=== PATIENT | male | born 1945 | race Caucasian/White ===

== ENCOUNTER 2018-07-29 00:12 | Emergency (ER) | payer OTHER ==
[~2018-07-29] VITALS: Ht 167.6 cm; Wt 77.1 kg
[~2018-07-29 00:12] MED LIST: CARDIZEM LA240 MG PO; CATAPRES0.3 MG PO; COREG25 MG PO; COUMADIN5 MG PO; NAPROSYN500 MG PO; PLAVIX75 MG PO; PRAVASTATIN SOD10 MG PO; ZESTRIL40 MG PO
[2018-07-29 00:27] VITALS: Ht 167.6 cm; Wt 77.1 kg
[2018-07-29] MEDS ORDERED: COUMADIN7.5 MG PO (00:33)
[2018-07-29] MEDS ORDERED: OMEPRAZOLE20 M1 (00:35)
[2018-07-29] MEDS ORDERED: PRAVACHOL20 MG PO (00:35)
[2018-07-29] MEDS ORDERED: ADALAT CC90 MG PO (00:36)
[2018-07-29] MEDS ORDERED: LISINOPRIL40 MG PO (00:37)
[2018-07-29 02:00] LABS: BASOPHILS 0.5 % (0-2); EOSINOPHILS 1.6 % (0-7); HEMATOCRIT 36.5 % (42.0-54.0); HEMOGLOBIN 12.2 g/dL (13.5-17.5); IMMATURE GRANULOCYTES 0.3 % (0-5); MCH 28.7 pg (26.0-34.0); MCHC 33.4 g/dL (31.0-37.0); MCV 85.9 fL (80.0-100.0); MEAN PLATELET VOLUME 11.3 fL (7.4-10.4); MONOCYTES 9.8 % (2-11); NEUTROPHILS 64.8 % (40-80); PLATELET COUNT 169 10x3/uL (130-400); RBC 4.25 10x6/uL (4.20-6.10); RDW 14.9 % (11.5-14.5); WBC 6.3 10x3/uL (4.8-10.8)
[2018-07-29 02:04] LABS: APTT 37.7 SECONDS (22.8-39.4); INR 2.9 (0.85-1.17); PROTIME 29.6 SECONDS (11.6-15.0)
[2018-07-29 02:05] LABS: D-DIMER-QUANTITATIVE 0.42 ug/mLFEU (0.20-0.54)
[2018-07-29 02:08] LABS: ALBUMIN 3.1 g/dL (3.4-5.0); ALKALINE PHOSPHATASE 54 U/L (46-116); ALT (SGPT) 14 U/L (10-68); BILIRUBIN - TOTAL 0.27 mg/dL (0.2-1.3); CALC OSMOLALITY 270 mosm/kg (275-300); CALCIUM 8.2 mg/dL (8.5-10.1); CARBON DIOXIDE 26.4 mmol/L (21.0-32.0); CHLORIDE - SERUM 104 mmol/L (98-107); CREATININE - SERUM 0.9 mg/dL (0.6-1.3); GLUCOSE 103 mg/dL (74-106); POTASSIUM - SERUM 3.2 mmol/L (3.5-5.1); PROTEIN - SERUM 6.4 g/dL (6.4-8.2); SODIUM 136 mmol/L (136-145); UREA NITROGEN 10 mg/dL (7-18); eGFR NON AFRICAN AMERICAN 88 mL/min (90-120)
[2018-07-29 02:23] LABS: CKMB 1.7 U/L (0.0-3.6); CREATINE KINASE 101 UL (21-232); MAGNESIUM - SERUM 1.8 mg/dL (1.8-2.4)
[2018-07-29 02:59] LABS: TROPONIN-I 0.093 ng/mL (0.000-0.060)
[2018-07-29 03:35] VITALS: BP 132/991
== END 2018-07-29 03:46 | disposition home or self-care (01) ==
LOC: D.ER 00:12
PROVIDERS: Family Medicine
DX: I48.91 Unspecified atrial fibrillation (principal); R74.8 Abnormal levels of other serum enzymes; E87.6 Hypokalemia; Z79.01 Long term (current) use of anticoagulants; R53.1 Weakness; R42 Dizziness and giddiness

== ENCOUNTER 2018-08-01 00:36 | Emergency (ER) | payer OTHER ==
[~2018-08-01] VITALS: Ht 167.6 cm; Wt 88.9 kg
[~2018-08-01 00:36] MED LIST changes: +ADALAT CC90 MG PO; +COUMADIN7.5 MG PO; +LISINOPRIL40 MG PO; +OMEPRAZOLE20 M1; +PRAVACHOL20 MG PO
[2018-08-01 00:42] VITALS: Ht 167.6 cm; Wt 88.9 kg
[2018-08-01] MEDS ORDERED: LANOXIN125 MCG PO (00:46)
[2018-08-01 01:21] LABS: CKMB 1.9 U/L (0.0-3.6); CREATINE KINASE 136 UL (21-232); DIGOXIN 0.56 ng/mL (0.90-2.00); POTASSIUM - SERUM 3.4 mmol/L (3.5-5.1); TROPONIN-I < 0.017 ng/mL (0.000-0.060)
[2018-08-01 02:24] VITALS: BP 158/88
== END 2018-08-01 02:24 | disposition home or self-care (01) ==
LOC: D.ER 00:36
PROVIDERS: Emergency Medicine
DX: I48.91 Unspecified atrial fibrillation (principal); D64.9 Anemia, unspecified

== ENCOUNTER 2019-08-30 15:23 | Emergency (ER) | payer OTHER ==
[~2019-08-30] VITALS: Ht 167.6 cm; Wt 98.2 kg
[~2019-08-30 15:23] MED LIST changes: +LANOXIN125 MCG PO
[2019-08-30 15:45] VITALS: Ht 167.6 cm; Wt 98.2 kg
[2019-08-30] MEDS ORDERED: METOPROLOL TART25 MG (15:50)
[2019-08-30 16:43] LABS: HEMATOCRIT 46.3 % (42.0-54.0); HEMOGLOBIN 15.1 g/dL (13.5-17.5); LYMPHOCYTES 29.8 % (15-50); MCH 28.4 pg (26.0-34.0); MCHC 32.6 g/dL (31.0-37.0); MEAN PLATELET VOLUME 11.4 fL (7.4-10.4); NEUTROPHILS 59.8 % (40-80); PLATELET COUNT 187 10x3/uL (130-400); RBC 5.32 10x6/uL (4.20-6.10); RDW 17.2 % (11.5-14.5); WBC 6.4 10x3/uL (4.8-10.8)
[2019-08-30 16:54] LABS: APTT 34.7 SECONDS (22.8-39.4); INR 2.43 (0.85-1.17)
[2019-08-30 16:55] LABS: CALC OSMOLALITY 276 mosm/kg (275-300); CALCIUM 9.1 mg/dL (8.5-10.1); CARBON DIOXIDE 27.5 mmol/L (21.0-32.0); CHLORIDE - SERUM 103 mmol/L (98-107); CREATININE - SERUM 0.7 mg/dL (0.6-1.3); GLUCOSE 88 mg/dL (74-106); POTASSIUM - SERUM 3.2 mmol/L (3.5-5.1); SODIUM 140 mmol/L (136-145); UREA NITROGEN 10 mg/dL (7-18); eGFR NON AFRICAN AMERICAN > 90 mL/min (90-120)
[2019-08-30 17:13] LABS: ALBUMIN 3.5 g/dL (3.4-5.0); ALKALINE PHOSPHATASE 66 U/L (30-120); ALT (SGPT) 17 U/L (10-68); BILIRUBIN - TOTAL 0.42 mg/dL (0.2-1.3); CKMB 1.7 U/L (0.0-3.6); CREATINE KINASE 100 UL (21-232); MAGNESIUM - SERUM 2.1 mg/dL (1.8-2.4); PROTEIN - SERUM 7.3 g/dL (6.4-8.2)
[2019-08-30 17:22] LABS: TROPONIN-I < 0.017 ng/mL (0.000-0.060)
[2019-08-30 18:28] VITALS: BP 124/73
== END 2019-08-30 18:29 | disposition home or self-care (01) ==
LOC: D.ER 15:23
PROVIDERS: Family Medicine
DX: E87.6 Hypokalemia (principal); I48.91 Unspecified atrial fibrillation; E86.0 Dehydration; R42 Dizziness and giddiness; I10 Essential (primary) hypertension; Z72.0 Tobacco use; K21.9 Gastro-esophageal reflux disease without esophagitis; R07.9 Chest pain, unspecified

== ENCOUNTER 2020-08-30 02:26 | Inpatient (IN) | payer OTHER ==
[~2020-08-30] VITALS: Ht 167.6 cm; Wt 72.8 kg
[2020-08-30] VITALS (13 sets, daily range): BP systolic 98–124; BP diastolic 53–89; Ht 167.6 cm; Wt 72.8 kg
--- NOTE | ~2020-08-30 | HEMODYNAMI ---
PATIENT:SHANNAN WADE MEDICAL RECORD: [id number] : 41 [address] [id number] ADMISSION DATE: 08/30/20 Generatedon:19:43 Patient name: SHANNAN WADE Patient #: [id number] : 1945 Date of study: 09/01/2020 Page: Of Hemodynamic Procedure Report Patient Data Patient Demographics Procedure consent was obtained First Name: SHANNAN Gender: Male Last Name: MAURO : 1945 Patient #: [id number] Age: 75 year(s) Race: SSN: [id number] Additional ID: [id number] Contact details Address: [address] [place] [address] State: [place] City: [place] Zip code: [address] Past Medical History Allergies: No known allergies Admission Admission Data Admission Date: 08/30/2020 Admission Time: 4:59 Room #: [facility] Lab Results Lab Result Date: 09/01/2020 Lab Result Time: 0:00 Biochemistry Name Units Result Min Max BUN mg/dl 15 --(--*-)-- 7 18 Creatinine mg/dl 1.2 --(---*)-- 0.6 1.3 CBC Name Units Result Min Max Hemoglobin g/dl 15.3 --(-*--)-- 13.5 17.5 Procedure Procedure Types Cath Procedure Diagnostic Procedure LHC [facility] w/Coronaries FFR/IVUS FFR Initial Sedation Charges Moderate Sedation 25-39 minutes PCI Procedure Coronary Stent Coronary Stent Initial Hemochron ACT Test Procedure Description Procedure Date Procedure Date: 09/01/2020 Procedure Start Time: 9:08 Procedure End Time: 9:40 Procedure Staff Name Function Vitaliy Beverly MD Performing Physician She Garland RT Monitor Maria Del Carmen Porter RT Scrub Hardeep Anderson RN Nurse Efrem Stein RN Nurse Procedure Data Cath Procedure Fluoroscopy Diagnostic fluoroscopy Total fluoroscopy Time: 6.3 time: 6.3 min min Diagnostic fluoroscopy Total fluoroscopy dose: 708 dose: 708 mGy mGy Contrast Material Contrast Material Type Amount (ml) Isovue 300 123 Entry Location Entry Primary Successful Side Size Upsize Upsize Entry Closure Succes sful Closure Location (Fr) 1 (Fr) 2 (Fr) Remarks Device Remarks Femoral Right 6 Fr 6 Fr 6 Fr Exoseal artery Short Long Short Estimated blood loss: 5 ml Diagnostic catheters Device Type Used For End Catheter Placement MULTIPACK JL 4.0 5Fr Left Coronary catheter Angiography DIAGNOSTIC JL 5 5Fr Left Coronary catheter ([id number]) Angiography DIAGNOSTIC JL 6 5Fr Left Coronary catheter ([id number]) Angiography MULTIPACK 3DRC 5Fr Right Coronary catheter Angiography MULTIPACK Pigtail 5 Fr LV Angiography catheter Procedure Complications No complications Procedure Medications Medication Administration Route Dosage 0.9% NaCl I.V. 100 ml/hr Oxygen etCO2 Nasal cannula 3 l/min Heparin Flush Bag added to field 2 bags (1000units/500ml NS) Lidocaine 2% added to field 20 Fentanyl I.V. 50 mcg Versed I.V. 1 mg Fentanyl I.V. 25 mcg Versed I.V. 0.5 mg Fentanyl I.V. 25 mcg Versed I.V. 0.5 mg Heparin Bolus I.V. 5000 units Integrilin (Bolus I.V. 6.8 ml 2mg/ml) Plavix P.O. 600 mg Hemodynamics Rest HGB: 15.3 (g/dl) Heart Rate: 75 (bpm) Pressure Samples Time Site Value (mmHg) Purpose Heart Use Rate(bpm) 9:22 LV 108/21,23 Snapshot 68 Gradients Valve Time Site Site Mean SEP/DFP Peak To Heart Use 1 2 (mmHg) (sec/min) Peak Rate (mmHg) (bpm) Aortic 9:23 LV AO 56 Snapshots Pre Cath Intra NCS Post Cath Vital Signs Time Heart Resp SPO2 etCO2 NIBP (mmHg) Rhythm Pain Sedation Rate (ipm) (%) (mmHg) Status Level (bpm) 8:49:18 82 20 100 0 133/95(127) NSR 0 (11) 10(A) , No pain 8:53:26 80 15 99 0 140/111(121) NSR 0 (11) 10(A) , No pain 8:57:36 85 15 98 0 133/95(105) NSR 0 (11) 10(A) , No pain 9:01:44 78 13 98 0 125/89(107) NSR 0 (11) 10(A) , No pain 9:05:52 62 12 96 0 122/84(111) NSR 0 (11) 10(A) , No pain 9:10:00 72 13 98 0 118/83(101) NSR 0 (11) 9(A) , No pain 9:14:03 51 12 98 0 122/87(105) NSR 0 (11) 9(A) , No pain 9:18:05 67 11 99 0 114/86(98) NSR 0 (11) 9(A) , No pain 9:22:07 69 10 98 0 116/81(95) NSR 0 (11) 9(A) , No pain 9:26:15 56 11 95 0 105/70(83) NSR 0 (11) 9(A) , No pain 9:30:16 53 11 96 0 121/77(94) NSR 0 (11) 9(A) , No pain 9:34:20 58 10 98 0 108/77(90) NSR 0 (11) 9(A) , No pain 9:38:24 65 11 98 0 103/80(97) NSR 0 (11) 10(A) , No pain Medications Time Medication Route Dose Verified Delivered Reason Notes Effectiveness by by 8:48:27 0.9% NaCl I.V. 100 Vitaliy Topete used for ml/hr St Naif Stein RN procedure 8:48:37 Oxygen etCO2 3 Vitaliy Efrem for sedation Nasal l/min St Naif Stein RN cannula 8:48:46 Heparin Flush added 2 Vitaliy Vitaliy used for Bag to bags [facility] procedure (1000units/500ml field MD MCQUEEN NS) 8:48:55 Lidocaine 2% added 20ml Vitaliy Meyersory for local to vial [facility] anesthetic field MD MCQUEEN 9:08:22 Fentanyl I.V. 50 Vitaliy Efrem for sedation mcg St Naif Stein RN, MD 9:08:30 Versed I.V. 1 mg Vitaliy Guthriey for sedation St Naif Stein RN, MD 9:16:34 Fentanyl I.V. 25 Vitaliy Guthriey for sedation mcg St Naif Stein RN, MD 9:16:37 Versed I.V. 0.5 Vitaliy Efrem for sedation mg St Naif Stein RN, MD 9:22:17 Fentanyl I.V. 25 Vitaliy Topete for sedation mcg St Naif Stein RN, MD 9:22:22 Versed I.V. 0.5 Vitaliy Topete for sedation mg St Naif Stein RN, MD 9:25:59 Heparin Bolus I.V. 5000 Vitaliy Topete for units St Naif Stein RN anticoagulation MD 9:27:58 Integrilin I.V. 6.8 Vitaliy Topete for 3.2 mL (Bolus 2mg/ml) ml St Naif Stein RN antiplatelet wasted MD therapy 9:40:47 Plavix P.O. 600 Vitaliy Topete for mg St Naif Stein RN antiplatelet MD therapy Procedure Log Time Note 8:28:45 Diagnostic Cath Status : Urgent 8:29:20 Informed consent obtained and on chart 8:32:22 Procedure Status Urgent Heart Cath (IP). 8:32:27 Hardeep Anderson RN sent for patient. Start room use. 8:32:28 Time tracking: Regular hours (M-F 7:00 - 5:00) 8:32:34 Plan of Care:Hemodynamics will remain stable., Cardiac rhythm will remain stable., Comfort level will be maintained., Respiratory function will remain adequate., Patient/ family verbilizes understanding of procedure., Procedure tolerated without complication., Recovers from procedure without complications.. 8:41:30 Lab Result : Hemoglobin 15.3 g/dl 8:41:30 Lab Result : Creatinine 1.2 mg/dl 8:41:30 Lab Result : BUN 15 mg/dl 8:41:39 Patient received from Med II to CCL 1 Alert and oriented. Tansferred to table in Supine position. 8:41:40 Warm blankets applied, and holly hugger turned on for patient comfort. 8:41:40 Correct patient and procedure confirmed by team. 8:41:41 ECG and BP/O2 sat monitors applied to patient. 8:48:13 Vital chart was started 8:48:27 0.9% NaCl 100 ml/hr I.V. was administered by Efrem Stein RN; used for procedure; Verbal order read back and verified. 8:48:37 Oxygen 3 l/min etCO2 Nasal cannula was administered by Efrme Stein RN; for sedation; Verbal order read back and verified. 8:48:46 Heparin Flush Bag (1000units/500ml NS) 2 bags added to field was administered by Vitaliy Beverly MD; used for procedure; Verbal order read back and verified. 8:48:55 Lidocaine 2% 20ml vial added to field was administered by Vitaliy Beverly MD; for local anesthetic; Verbal order read back and verified. 8:53:24 Baseline sample Acquired. 8:54:02 Full Disclosure recording started 8:54:05 Baseline sample Acquired. 8:54:16 H&P Date Dictated: 09/01/2020 ER History on chart., New H&P dictated by physician.. 8:54:17 Pre-procedure instructions explained to patient. 8:54:18 Pre-op teaching completed and patient verbalized understanding. 8:54:20 Family in patients room. 8:54:21 Patient NPO since Midnight. 8:54:26 Is the patient allergic to Iodine/contrast media? No. 8:54:27 Was the patient premedicated? Yes 8:54:28 Is patient on blood thinner?Yes 8:54:56 patient states last dose of Coumadin on 08/30/20 8:54:59 Patient diabetic? No. 8:55:01 Previous problem with sedation/anesthesia? No ? 8:55:03 Snore? Yes 8:55:04 Sleep apnea? No 8:55:11 Deviated septum? No 8:55:12 Opens mouth fully? Yes 8:55:14 Sticks out tongue? Yes 8:55:24 Airway obstruction? No ? 8:55:27 Dentures? No ? 8:55:30 Pre procedure: right dorsailis pedis pulse 2+ Normal; easily identifiable; not easily obliterated 8:55:32 Pre procedure: left dorsailis pedis pulse 2+ Normal; easily identifiable; not easily obliterated 8:55:35 Patient pain scale 0/10 ?. 8:55:42 IV patent on arrival in right forearm with 0.9% NaCl at [facility]. 8:55:48 Lab results completed and on chart. 8:56:13 Right groin area was prepped with chlora-prep and draped in sterile fashion 8:56:16 Alarms reviewed by R. N. 8:56:17 Sharps counted by scrub and verified by R.N. 8:57:18 2) 60-89 Mildly reduced kidney function, and other findings (as for stage 1) point to kidney disease. 8:59:13 Maximum allowable contrast dose (3.7 X eGFR X 0.75)172 ml. 8:59:18 Sedation plan: IV Moderate Sedation Medication:Versed, Fentanyl 9:00:01 Use device set Femoral Dx 9:00:02 ACIST Syringe (96318) opened to sterile field. 9:00:03 Bag Decanter (2002S) opened to sterile field. 9:00:03 Medline Cath Pack ([id number]) opened to sterile field. 9:00:07 ACIST Hand Control (71236) opened to sterile field. 9:00:09 ACIST Manifold (54165) opened to sterile field. 9:00:10 DIAGNOSTIC Multipack 5Fr catheter set (VN3103) opened to sterile field. 9:00:10 Tegaderm 4 x 4 (1626W) opened to sterile field. 9:00:12 SHEATH 5FR Arimo (FCQ142) opened to sterile field. 9:00:12 EMERALD Guide Wire (549-434) opened to sterile field. 9:02:13 Zero performed for pressure channel P1 9:06:35 Procedure started. 9:08:10 Physician arrived 9:08:11 --------ALL STOP TIME OUT------ 9:08:12 Final Timeout: patient, procedure, and site verified with staff and physician. All members of the team are in agreement. 9:08:14 Right groin site verified by team. 9:08:18 Fire Safety Assessment: A--An alcohol-based skin anteseptic being used preoperatively., C--Open oxygen or nitrous oxide is being used., D--An ESU, laser, or fiber-optic light is being used. 9:08:21 Physical assessment completed. ASA score P 2 - A patient with mild systemic disease as per Vitaliy Beverly MD. 9:08:22 Fentanyl 50 mcg I.V. was administered by Efrem Stein RN; for sedation; Verbal order read back and verified. 9:08:30 Versed 1 mg I.V. was administered by Efrem Stein RN; for sedation; Verbal order read back and verified. 9:08:35 Local anesthetic to right femoral artery with Lidocaine 2% by Vitaliy Beverly MD.INITIAL ACCESS ONLY 9:08:44 A 6 Fr Short sheath was inserted into the Right Femoral artery 9:10:59 NEEDLE Cook 18G 7cm Percutaneous Entry needle ([id number]) opened to sterile field. 9:12:03 EMERALD Guide Wire (502-410) opened to sterile field. 9:12:18 first emerald wire damaged 9:12:41 SHEATH 6FR Destination (RSR01) opened to sterile field. 9:13:18 Sheath upsized to a 6 Fr Long. 9:14:43 A MULTIPACK JL 4.0 5Fr catheter was advanced over the wire and used for Left Coronary Angiography. 9:15:51 Catheter removed. unable to cannulate vessel. 9:16:03 A DIAGNOSTIC JL 5 5Fr catheter ([id number]) was advanced over the wire and used for Left Coronary Angiography. 9:16:34 Fentanyl 25 mcg I.V. was administered by Efrem Stein RN; for sedation; Verbal order read back and verified. 9:16:37 Versed 0.5 mg I.V. was administered by Efrem Stein RN; for sedation; Verbal order read back and verified. 9:17:07 Catheter removed. unable to cannulate vessel. 9:17:23 A DIAGNOSTIC JL 6 5Fr catheter ([id number]) was advanced over the wire and used for Left Coronary Angiography. 9:18:21 LCA angiography performed. 9:18:23 Injector settings: Ml/sec: 3, Volume: 6, 9:19:31 Catheter removed. 9:19:38 A MULTIPACK 3DRC 5Fr catheter was advanced over the wire and used for Right Coronary Angiography. 9:21:12 RCA angiography performed. 9:21:14 Injector settings: Ml/sec: 3, Volume: 6, 9:21:20 Catheter removed. 9:21:28 A MULTIPACK Pigtail 5 Fr catheter was advanced over the wire and used for LV Angiography. 9:22:17 Fentanyl 25 mcg I.V. was administered by Efrem Stein RN; for sedation; Verbal order read back and verified. 9:22:22 Versed 0.5 mg I.V. was administered by Efrem Stein RN; for sedation; Verbal order read back and verified. 9:22:55 LV hemodynamics recorded. 9:22:57 LV gram done using SWANSON 9:23:01 Injector settings: Ml/sec: 5, Volume: 15, 9:23:09 EF : 55 % 9:23:28 [place] OmniWire (67279) opened to sterile field. 9:23:46 INFLATOR Merit BasixCompak (QQ9959) opened to sterile field. 9:23:47 Quick Combo opened to sterile field. 9:24:50 Quick combo pads placed on patients chest and back. 9:25:01 Catheter removed. 9:25:04 Proceeding to intervention. 9:25:31 GUIDE 6FR XBLAD 4.0 catheter ([id number]) opened to sterile field. 9:25:41 6 Fr xblad 4 guide catheter was inserted over the wire 9:25:57 Pressure wire advanced. 9::59 Heparin Bolus 5000 units I.V. was administered by Efrem Stein RN; for anticoagulation; Verbal order read back and verified. 9:25:59 Baseline FFR 1. 9:27:58 Integrilin (Bolus 2mg/ml) 6.8 ml I.V. was administered by Efrem Stein RN; for antiplatelet therapy; 3.2 mL wasted Verbal order read back and verified. 9:31:12 Wire advanced across lesion. 9:31:18 pLAD lesion measured at 0.83 with IFR 9:33:44 Place stent Inflation Number: 1 A INTEGRITY RX 4.0 x 12 stent ([id number]) was prepped and advanced across the Prox LAD 90. The stent was deployed at 14 NADINE for 0:30 (min:sec) 0. 9:35:40 Stent catheter was removed intact over wire. 9:35:41 Wire removed. 9:35:42 Guide catheter removed. 9:35:50 EXOSEAL 6Fr (EX600) opened to sterile field. 9:36:02 Sheath upsized to a 6 Fr Short. 9:36:14 Sheath removed intact; hemostasis achieved with Exoseal to the Right Femoral artery. 9:36:17 Procedure ended.(Physican Out) 9:36:48 Fluoroscopy time 06.30 minutes. 9:36:53 Fluoroscopy dose: 708 mGy 9:36:53 Flurop Dose total: 708 9:36:59 Dose Area Product 61402 mGy/cm. 9:38:16 Contrast amount:Isovue 300 123ml. 9:38:19 Maximum allowable dose exceeded? No. 9:38:20 Sharps counted by scrub and verified by R.N. 9:38:21 Insertion/operative site no bleeding no hematoma. 9:38:24 Post-op/insertion site Right Femoral artery dressed using a 4 x 4 and Tegaderm. 9:38:26 Post right femoral artery:stable 9:38:28 Post Procedure Pulses reassessed and unchanged 9:38:31 Post procedure rhythm: unchanged. 9:38:34 Estimated blood loss: 5 ml 9:38:37 Post procedure instruction explained to patient.Patient verbalizes understanding. 9:38:38 Patient needs reinforcement of post procedure teaching. 9:39:49 Procedure type changed to Cath procedure, Diagnostic procedure, LHC, [facility] w/Coronaries, FFR/IVUS, FFR Initial, Sedation Charges, Moderate Sedation 25-39 minutes, PCI procedure, Coronary Stent, Coronary Stent Initial, Hemochron ACT Test 9:39:50 Procedure and supply charges have been captured, reviewed, submitted and are correct. 9:39:55 Procedure Complication : No complications 9:39:58 Vital chart was stopped 9:39:59 [facility] Findings: MVD- PCI performed (see procedure note) 9:40:00 Operative report dictated upon procedure completion. 9:40:01 See physician's report for complete and final results. 9:40:03 Report given to Med II. 9:40:06 Patient transfered to Med II with Stretcher. 9:40:08 Procedure ended. 9:40:08 Full Disclosure recording stopped 9:40:19 ACC-PCI Only Patient was given prescriptions, or instructed by Vitaily Beverly MD to start/continue the following medications upon discharge: Plavix 9:40:21 End room use (Document Last) 9:40:47 Plavix 600 mg P.O. was administered by Efrem Stein RN; for antiplatelet therapy; Verbal order read back and verified. 9:41:11 ACT drawn and resulted at 202 seconds. (normal therapeutic range 180-240 seconds). 9:41:12 SHEATH 6FR Arimo (LVI000) opened to sterile field. 9:41:41 EXOSEAL 6Fr (EX600) opened to sterile field. Intervention Summary Intervention Notes Time ActionType Lesion and Equipment Action# Pressure Duration Attributes Used 9:33:44 Place stent Prox LAD INTEGRITY RX 1 14 00:30 4.0 x 12 stent ([id number]) Device Usage Item Name Manufacture Quantity Catalog Hospital Part Current Minim al Lot# / Number Charge Number Stock Stock Serial# Code ACIST Acist 1 95472 719293 181834 157376 20 Syringe Medical (33689) Systems Inc Bag Decanter Microtek 1 684755 47331 341318 5 () Medical Inc. Medline Cath Medline 1 [id number] 285860 32062 266716 5 Pack ([id number]) ACIST Hand Acist 1 60376 514799 313627 217690 5 Control Medical (52375) Systems Inc ACIST Acist 1 70290 865025 740273 905145 5 Manifold Medical (04444) Systems Inc DIAGNOSTIC Cardinal 1 GM6526 182323 12752 069355 30 Multipack Health 5Fr catheter set (MD1740) Tegaderm 4 x 3M 1 1626W 382949 634234 984376 5 4 (1626W) SHEATH 5FR Terumo 1 RUR274 654769 867295 623635 5 Arimo (XJZ117) EMERALD Cardinal 2 502-455 850901 702399 694095 5 Guide Wire Health (502-455) NEEDLE AGC [facility] 1 Q66668 158722 30385 350717 5 18G 7cm Percutaneous Entry needle (V39891) SHEATH 6FR Terumo 1 RSR01 536513 13968 260609 5 Destination (RSR01) MULTIPACK JL Cardinal 1 403203 5 4.0 5Fr Health catheter DIAGNOSTIC Cardinal 1 [id number] 399945 834804 937109 5 JL 5 5Fr Health catheter (718830C) DIAGNOSTIC Cardinal 1 [id number] 935075 934629 886969 5 JL 6 5Fr Health catheter (163940W) MULTIPACK Cardinal 1 391224 5 3DRC 5Fr Health catheter MULTIPACK Cardinal 1 251085 5 Pigtail 5 Fr Health catheter [place] 1 0205319 267005 60747 9942 5 OmniWire (95939) INFLATOR Merit 1 GU8831 053538 087036 211265 15 Smart Sparrow Medical BasixCompak (MO7632) Quick Combo Edge Systems 1 47475-142102 823488 742085 052737 5 GUIDE 6FR Cardinal 1 72674625 239986 190256 686275 3 XBLAD 4.0 Health catheter (36146722) INTEGRITY RX Medtronic 1 [id number] 653055 391017 025869 5 [id number] 4.0 x 12 stent ([id number]) EXOSEAL 6Fr Cardinal 2 EX600 949365 661634 725938 10 (EX600) Health SHEATH 6FR Terumo 1 ODW026 501002 811683 635274 40 Arimo (UEF620) Signature Audit [place] Stage Time Signature Unsigned Intra-Procedure 09/01/2020 She Garland 9:41:41 AM RT(R) Intra-Procedure 09/01/2020 Efrem Stein RN 9:43:12 AM Intra-Procedure 09/01/2020 Vitaliy Bellamy 9:43:47 AM Naif MCQUEEN [address] [address] [place] [address]
--- NOTE | ~2020-08-30 | OP ---
PATIENT NAME: SHANNAN WADE MEDICAL RECORD: [id number] :41 LOCATION:D. D.4 ADMISSION DATE:08/30/20 SURGEON: FREDDIE GILL MD DATE OF OPERATION: 09/01/2020 PROCEDURE: Left heart catheterization, selective coronary angiography plus IFR wire to the left main plus stenting of the left main, right femoral artery approach. CATHETERS: A 5-Cymro sheath, 5/4 left and right Brando. I used a long 6-Cymro sheath secondary to tortuosity. A XB LAD 4 guiding catheter provided excellent guide catheter support. The procedure was well tolerated. The patient was returned to the carney. Sheath removed. ExoSeal device was placed. FINDINGS: Left ventriculography in 30-degree SWANSON view shows severe global hypokinesis, reduced LV function of 20%. CORONARY ANATOMY: LEFT MAIN: Left main tapers to 80% stenosis confirmed via abnormal IFR wire less than 0.9. LAD: The LAD itself is free of disease. CIRCUMFLEX: Moderate sized circumflex, free of disease. RIGHT CORONARY: Codominant, previously placed stent is widely patent. PLAN: Intervention to the left main momentarily. DESCRIPTION: Using a long 6-Cymro sheath, XB LAD 4 guiding catheter provided good guide catheter support followed by IFR wire as described above. Stent deployed was 4.0 x 14 mm nondrug-eluting stent up to 14 atmospheres for 45 seconds. Final angiography shows excellent resolution of 80-90% left main stenosis to no significant residual. JOHANN flow was 3 throughout the procedure. Heparin and Integrilin were used during the case. Sheath closed with ExoSeal device. Plavix was loaded in the lab. TRANSINT:[id number] Voice Confirmation ID: [id number] DOCUMENT ID: [id number] FREDDIE GILL MD CC: [id number] DICTATION DATE: 09/01/20 0945 STATE TESTED NURSING ASSISTANT: 09/01/20 1449 ADM IN [place] [place] [address]
[~2020-08-30 02:26] MED LIST changes: +K-DUR20 MEQ PO; +LASIX40 MG PO; +METOPROLOL TART25 MG
[2020-08-30] MEDS ORDERED: VITAMIN D 22000 UNIT PO (02:47)
[2020-08-30 03:05] LABS: BASOPHILS 0.1 % (0-2); EOSINOPHILS 0.1 % (0-7); HEMOGLOBIN 14.8 g/dL (13.5-17.5); IMMATURE GRANULOCYTES 0.5 % (0-5); LYMPHOCYTE ABS# 0.92 10x3/uL (1.32-3.57); LYMPHOCYTES 10.6 % (15-50); MCH 32.5 pg (26.0-34.0); MCHC 34.4 g/dL (31.0-37.0); MCV 94.3 fL (80.0-100.0); MEAN PLATELET VOLUME 12.4 fL (7.4-10.4); MONOCYTES 8.3 % (2-11); NEUTROPHIL ABS# 7.02 10x3/uL (1.78-5.38); NEUTROPHILS 80.4 % (40-80); PLATELET COUNT 155 10x3/uL (130-400); RBC 4.56 10x6/uL (4.20-6.10); RDW 14.7 % (11.5-14.5); WBC 8.7 10x3/uL (4.8-10.8)
[2020-08-30 03:12] LABS: ANION GAP 16.6 mmol/L (8-16); CALCIUM 8.9 mg/dL (8.5-10.1); CARBON DIOXIDE 22.1 mmol/L (21.0-32.0); CREATININE - SERUM 1.1 mg/dL (0.6-1.3); POTASSIUM - SERUM 3.7 mmol/L (3.5-5.1)
[2020-08-30 03:15] LABS: APTT 41.9 SECONDS (22.8-39.4); INR 4.91 (0.85-1.17); PROTIME 42.7 SECONDS (11.6-15.0)
[2020-08-30 03:16] LABS: D-DIMER-QUANTITATIVE 0.52 ug/mLFEU (0.20-0.54)
[2020-08-30 03:34] LABS: ALBUMIN 3.2 g/dL (3.4-5.0); BILIRUBIN - TOTAL 1.03 mg/dL (0.2-1.3); C-REACTIVE PROTEIN 1.8 mg/dL (0.0-0.9); MAGNESIUM - SERUM 1.9 mg/dL (1.8-2.4); PROTEIN - SERUM 6.5 g/dL (6.4-8.2); THYROID STIMULATING HORMONE 1.77 uIU/mL (0.36-3.74)
[2020-08-30 03:38] LABS: TROPONIN-I 0.163 ng/mL (0.000-0.060)
--- NOTE | 2020-08-30 03:54 | NUR ---
CONDOM CATH PLACED AT THIS TIME.
--- NOTE | 2020-08-30 07:37 | NUR ---
REPORT RECEIVED. PATIENT IS AAOX4, LYING IN SEMI-FOWLERS POSITION. NO S/S OF DISTRESS OBSERVED. RR EVEN AND UNLABORED ON 4L O2 VIA NC. PIV TO RT WRIST PATENT, INFUSING DOBUTAMINE @10ML/HR. PATIENT DENIES NEEDS AT THIS TIME. CL IN REACH, BED LOCKED AND LOWERED. WILL CPOC.
--- NOTE | 2020-08-30 14:35 | NUR ---
URINE SPECIMEN COLLECTED AND SENT TO LAB
[2020-08-30 15:02] LABS: BILIRUBIN NEGATIVE (NEGATIVE); KETONE NEGATIVE (NEGATIVE); NITRITE NEGATIVE (NEGATIVE); UROBILINOGEN NORMAL mg/dL (< 2)
--- NOTE | 2020-08-30 15:22 | NUR ---
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 PAGED BOBBY ROMERO APN ABOUT DELIA WALTER.
--- NOTE | 2020-08-30 15:58 | EC ---
PATIENT:SHANNAN WADE DATE OF SERVICE: 08/30/20 SEX: M MEDICAL RECORD: [id number] DATE OF : 41 LOCATION:D.M2 D.211 AGE OF PATIENT: 75 ADMISSION DATE: 08/30/20 REFERRING PHYSICIAN: INTERPRETING PHYSICIAN: FREDDIE GILL MD ECHOCARDIOGRAM REPORT ECHO CHARGES 4 ECHO COMPLETE Date: 08/30/20 CLINICAL DIAGNOSIS: CHF, AFIB ECHOCARDIOGRAPHIC MEASUREMENTS (adult normal given) AC root (d.<3.7cm) 3.0 cm LV Septum d (<1.2 cm> 0.8 cm Valve Excursion 1.3 cm LV Septum (systole) 1.1 cm Left Atria (s.<4.0cm> 5.3 cm LVPW d(<1.2cm) 1.1 cm RV (d.<2.3cm) 3.1 cm LVPW (sytole) 1.2 cm LV diastole(<5.6CM) 7.5 cm MV E-F(>70mm/sec) cm LV systole 6.6 cm LVOT Diameter 2.1 cm MV exc.(>10mm) 1.3 cm Est.ejection fraction (50-75%) % DOPPLER: LVIT cm/sec A 28 cm/sec E 81 cm/sec LA cm/sec RVSP 33 mmHg LVOT 86 cm/sec AOP1/2T m/s Asc. Ao 125 cm/sec RVOT 53 cm/sec RA cm/sec PA 59 cm/sec AV Gradient Peak 6.2 mmHg AV Mean 4.0 mmHg AV Area 2.4 cm MV Gradient Peak 4.2 mmHg MV Mean 1.8 mmHg MV Area cm COMMENTS: Rn Paralegal: Crispin GALVAN Activated Sludge Attendant: 3 Dr. Vega TAPE# Pericardial Effusion N DATE OF SERVICE: Adequate 2D, color-flow imaging, spectral Doppler, and M-Mode FINDINGS: No LVH. LV internal dimensions are dilated. LV is globally hypokinetic with reduced EF, estimated EF at 20% to 25%. Aortic valve is sclerosis without evidence of stenosis by Doppler interrogation. Grsg-lh-biquenhb AI by color-flow imaging. Left atrium is dilated at 5.3 cm. Mitral valve shows no prolapse. Mild MR. Right-sided chambers appear grossly normal. Moderate TR. ECHOCARDIOGRAM REPORT [id number] SHANNAN WADE TRANSINT:[id number] Voice Confirmation ID: [id number] DOCUMENT ID: [id number] FREDDIE GILL MD at 1558 CC: [id number] DICTATION DATE: 08/30/20 1210 ADMINISTRATIVE REPRESENTATIVE: 08/30/20 1245 ADM IN [place] [id number] [place] [id number]
--- NOTE | 2020-08-30 15:58 | CN ---
PATIENT NAME:SHANNAN WADE MEDICAL RECORD: [id number] : 41 LOCATION:[facility].2114 ADMIT DATE: 08/30/20 ACCOUNT: [id number] CONSULTING PHYSICIAN: FREDDIE GILL MD REFERRING PHYSICIAN: FREDDIE MALHOTRA MD DATE OF CONSULTATION: 08/30/2020 HISTORY OF PRESENT ILLNESS: A 75-year-old gentleman with a history of coronary artery disease, status post intervention via Dr. Giordano. He has a history of atrial fibrillation, on rate control, on Coumadin for CVA prophylaxis, 3-4 day history of worsening dyspnea. Shannan reports waxing and waning symptomatology, noted to have rates in the 150s, currently improved on Cardizem for rate control. He was subsequently found to have ST-T segment changes on EKG as well as increased troponin, currently with NSTEMI. We are asked to see him concerning his cardiovascular status. PAST MEDICAL HISTORY: Includes; 1. History of hypertension. 2. Hyperlipidemia. 3. Coronary artery disease as described above. 4. Atrial fibrillation, on Coumadin for CVA prophylaxis. ALLERGIES: None known. MEDICATIONS: Include Lasix 40 mg p.o. daily, nifedipine 60 every day, metoprolol 25 b.i.d., lisinopril 20 every day, digoxin 0.125 every day, pravastatin 10 every day, warfarin per scale. SOCIAL HISTORY: Nonsmoker, nondrinker. Typically, he is able to take care of his LDLs over the last few days, does try to walk on a regular basis. REVIEW OF SYSTEMS: The patient reports easy bruising but reports no swollen glands. The patient reports no fever, no night sweats, no significant weight gain, no significant weight loss. No significant exercise tolerance. The patient reports no dry eyes, no irritation, no vision change. Patient reports no difficulty hearing and no ear pain. Patient reports no frequent nose bleeds or nose and sinus problems. Patient reports on arm pain on exertion. No shortness of breath while lying down. No history of heart murmur. Patient reports no cough, no wheezing or coughing up blood. Patient reports no abdominal pain, no vomiting. Normal appetite. No diarrhea and not vomiting blood. No nausea and no constipation. Patient reports no incontinence. No difficulty urinating. No hematuria. No increased frequency. Patient reports no muscle aches. No weakness, no arthralgias, no back pain. No swelling of the extremities. Patient reports no abnormal mole, no jaundice, no rashes. Reports no loss of consciousness. No weakness and no numbness. No seizures, dizziness, or headaches. The patient reports no depression, no sleep disturbance, feeling safe in a relationship and no alcohol abuse. Patient reports on fatigue. Reports no runny nose or sinus pressure. No itching, no hives, and no frequent sneezing. PHYSICAL EXAMINATION: GENERAL: No acute distress, appears stated age. VITAL SIGNS: Blood pressure 103/70, pulse 91 and irregular. HEENT: Normocephalic, atraumatic. NECK: No bruits are noted. CONSULT REPORT [id number] SHANNAN WADE HEART: Irregular, rate is controlled. Questionable S3 gallop. LUNGS: Prolonged expiratory phase. Few expiratory wheezes. ABDOMEN: Soft, nontender. EXTREMITIES: Pulses are decreased 1+ with no edema. DIAGNOSTIC DATA: EKG shows inferolateral ST-T segment changes. IMPRESSION: Given symptomatology difficult to say it is a type 1 or type 2 myocardial infarction with demand ischemia. Certainly, previous history of coronary artery disease, concern for progression of disease from this standpoint as well. INR currently 4. Planned for letting INR to lower. Planned angiography in the next day or so. TRANSINT:[id number] Voice Confirmation ID: [id number] DOCUMENT ID: [id number] FREDDIE GILL MD at 1558 CC: [id number] DICTATION DATE: 08/30/20 110 MANAGER OF CASE: 08/30/20 1242 ADM IN [place] [id number] [place] [address]
--- NOTE | 2020-08-30 15:59 | NUR ---
2ND PAGE SENT OUT TO CARDIOLOGY
--- NOTE | 2020-08-30 20:00 | NUR ---
REPORT RECEIVED. PT A&O, UP IN BED WATCHING TV. NO S/S OF DISTRESS OBSERVED. RR EVEN & UNLABORED ON 4L. PTS IV TO R WRIST INFILTRATED. RESITED 20G TO L FA X3 STICKS. PT TOLERATED WELL. CARDIZEM DRIP INFUSING AT 5. CAFIB 65 ON TELE. BED LOCKED AND LOWERED. CL IN REACH. WILL CONT POC.
--- NOTE | 2020-08-30 21:24 | NUR ---
PTS HEART RATE 50-58. SPOKE WITH DR. NUNEZ WHO STATED TO STOP CARDIZEM DRIP. WILL CONT POC.
[2020-08-31 01:37] VITALS: BP 116/79
[2020-08-31 04:30] VITALS: BP 141/73
[2020-08-31 05:53] VITALS: BP 127/83
[2020-08-31 06:25] LABS: BASOPHILS 0.1 % (0-2); EOSINOPHILS 0.4 % (0-7); HEMATOCRIT 41.5 % (42.0-54.0); HEMOGLOBIN 14.3 g/dL (13.5-17.5); IMMATURE GRANULOCYTES 0.4 % (0-5); LYMPHOCYTE ABS# 1.44 10x3/uL (1.32-3.57); LYMPHOCYTES 19.2 % (15-50); MCH 32.4 pg (26.0-34.0); MCHC 34.5 g/dL (31.0-37.0); MCV 94.1 fL (80.0-100.0); MEAN PLATELET VOLUME 12.4 fL (7.4-10.4); MONOCYTES 9.7 % (2-11); NEUTROPHIL ABS# 5.27 10x3/uL (1.78-5.38); NEUTROPHILS 70.2 % (40-80); PLATELET COUNT 128 10x3/uL (130-400); RBC 4.41 10x6/uL (4.20-6.10); RDW 14.7 % (11.5-14.5); WBC 7.5 10x3/uL (4.8-10.8)
[2020-08-31 06:44] LABS: ALBUMIN 2.9 g/dL (3.4-5.0); ALKALINE PHOSPHATASE 58 U/L (30-120); ALT (SGPT) 21 U/L (10-68); BILIRUBIN - TOTAL 1.57 mg/dL (0.2-1.3); CALC OSMOLALITY 266 mosm/kg (275-300); CALCIUM 8.9 mg/dL (8.5-10.1); CARBON DIOXIDE 25.3 mmol/L (21.0-32.0); CHLORIDE - SERUM 99 mmol/L (98-107); MAGNESIUM - SERUM 1.9 mg/dL (1.8-2.4); POTASSIUM - SERUM 3.8 mmol/L (3.5-5.1); PROTEIN - SERUM 6.2 g/dL (6.4-8.2); SODIUM 134 mmol/L (136-145); UREA NITROGEN 12 mg/dL (7-18); eGFR NON AFRICAN AMERICAN 77 mL/min (90-120)
[2020-08-31 06:45] LABS: GLUCOSE 89 mg/dL (74-106)
[2020-08-31 07:03] LABS: INR 2.73 (0.85-1.17); PROTIME 26.9 SECONDS (11.6-15.0)
[2020-08-31 08:00] VITALS: BP 160/76
--- NOTE | 2020-08-31 09:00 | NUR ---
PATIENT AWAKE AND ALERT. NO CURRENT PAIN OR DISTRESS NOTED. MEDS ADMINISTERED, AT BEDSIDE. PATIENT IS UP AT JONA, WOULD LIKE HIM TO HAVE ASSISTANCE. LUNG SOUNDS WHEEZING IN BILATERAL LOWER LOBES. SHORTNESS OF BREATH NOTED AT TIMES. ASSIST PATIENT WITH DEEP BREATHING EXERCISES TO ASSIST IN BREATHING. O2 AT 2L IN USE VIA NASAL CANNULA. HEART SOUNDS AFIB TELE CONTROLLED AFIB 82.
[2020-08-31 12:00] VITALS: BP 124/79
--- NOTE | 2020-08-31 13:24 | NUR ---
BEDSIDE REPORT GIVEN PATIENT RESTING WITH EYES CLOSED. RESP EVEN AND UNLABORED. NO VOICED COMPLAINTS AT THIS TIME. IV TO LEFT FOREARM.
--- NOTE | 2020-08-31 14:16 | NUR ---
I have reviewed this patient and I concur with the Shift Assessment completed by the Licensed Practical Nurse today this shift.
--- NOTE | 2020-08-31 17:59 | NUR ---
PATIENT SITTING IN BED. NO CURRENT PAIN OR DISTRESS VOICED. AT BEDSIDE, IV TO L FOREARM RED NOT SWOLLEN OR PAINFUL, FLUSHES WELL. CARDIZEM RUNNING AT 10 ML PER HOUR. [place] BUT VERY PLEASANT.
--- NOTE | 2020-08-31 19:50 | NUR ---
RECIEVED SITTING UP ON SIDE OF BED. ALERT AND ORIENTED X4. UP AD JONA. TELEMETY IN PLACE. STATED HE JUST HAD A SHOWER. NON SKID SOCKS PLACED ON HIM AND WARRM BLANKET. DENIES ANY OTHER NEEDS. NO EDEMA TO LOWER EXTREMITIES.
[2020-08-31 20:39] VITALS: BP 115/76
[2020-09-01 00:02] VITALS: BP 95/51
--- NOTE | 2020-09-01 01:25 | NUR ---
IV SITE WAS JENNY WHEN ASSESSED. D/C'D IV AND RESTARTED 20 GA TO LTY FA. PT GOT UP AND WALKED ACROSS ROOM CAUSING IV TO COME OUT. ORESTES RN RESTARTED IV.
--- NOTE | 2020-09-01 04:16 | NUR ---
REPORTED A RUN OF V-TACH. HE WAS ASYMPTOMATIC. HAD WOKE UP FROM A DREAM AND DID'NT KNOW IF HE COULD GO TO B/R. HE WAS CONFUSED AND SAID HE HAD A BAD DREAM. SITTING UP IN BED AND REQUESTING COFFEE AT THIS TIME WITH NO COMPLAINTS. SAID HE IS FEELING GOOD.
[2020-09-01 05:07] VITALS: BP 148/96
[2020-09-01 06:08] LABS: BASOPHILS 0.1 % (0-2); EOSINOPHILS 0.2 % (0-7); HEMATOCRIT 44.6 % (42.0-54.0); HEMOGLOBIN 15.3 g/dL (13.5-17.5); IMMATURE GRANULOCYTES 0.6 % (0-5); LYMPHOCYTES 15.4 % (15-50); MCH 32.3 pg (26.0-34.0); MCHC 34.3 g/dL (31.0-37.0); MCV 94.1 fL (80.0-100.0); MEAN PLATELET VOLUME 13.5 fL (7.4-10.4); MONOCYTES 7.6 % (2-11); NEUTROPHIL ABS# 6.42 10x3/uL (1.78-5.38); NEUTROPHILS 76.1 % (40-80); PLATELET COUNT 152 10x3/uL (130-400); RBC 4.74 10x6/uL (4.20-6.10); RDW 14.3 % (11.5-14.5); WBC 8.4 10x3/uL (4.8-10.8)
[2020-09-01 06:41] LABS: ALBUMIN 3.2 g/dL (3.4-5.0); ANION GAP 15.5 mmol/L (8-16); BILIRUBIN - TOTAL 1.68 mg/dL (0.2-1.3); CALCIUM 9.2 mg/dL (8.5-10.1); CARBON DIOXIDE 24.7 mmol/L (21.0-32.0); CREATININE - SERUM 1.2 mg/dL (0.6-1.3); MAGNESIUM - SERUM 1.9 mg/dL (1.8-2.4); PROTEIN - SERUM 6.9 g/dL (6.4-8.2)
[2020-09-01 06:47] LABS: POTASSIUM - SERUM 3.2 mmol/L (3.5-5.1)
[2020-09-01 07:20] LABS: INR 1.5 (0.85-1.17); PROTIME 16.8 SECONDS (11.6-15.0)
[2020-09-01 08:13] VITALS: BP 123/86
--- NOTE | 2020-09-01 08:20 | NUR ---
PRE-OPS GIVEN. 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
[2020-09-01 08:54] LABS: CHOL - HDL RATIO 2.2 ratio (2.3-4.9)
--- NOTE | 2020-09-01 10:15 | NUR ---
BACK FROM [facility]IVER. VS WNL. RIGHT GROIN STABLE WITH FEMSTOP INTACT. WILL MONITOR.
[2020-09-01] MEDS ORDERED: BISOPROLOL FUMAR5 MG PO (10:36)
[2020-09-01] MEDS ORDERED: ALDACTONE25 MG PO (10:37)
[2020-09-01] MEDS ORDERED: PLAVIX75 MG PO ×2 (11:14→11:49)
--- NOTE | 2020-09-01 11:18 | NUR ---
PT HAD STENT. NO PLAVIX ORDERED ON D/C. SPOKE WITH BOBBY ROMERO APN AND SHE SAID PT TO BE ON PLAVIX 75 MG/DAY. NO ASPIRIN PT IS ON COUMADIN.
[2020-09-01 13:00] VITALS: BP 137/75
--- NOTE | 2020-09-01 13:13 | NUR ---
FEMSTOP OFF WITHOUT BLEEDING OR HEMATOMA NOTED. 02 SAT 95% ON RA.
--- NOTE | 2020-09-01 13:59 | NUR ---
BED REST UP. GROIN STABLE.
--- NOTE | 2020-09-01 15:18 | NUR ---
02 SAT 91-95% ON RA AMBULATING. IV AND TELEMETRY DCD. DC PLANS GIVEN. UNDERSTANDING VOICED. ESCORTED TO CAR BY W/C.
== END 2020-09-01 15:19 | disposition home or self-care (01) | DRG 249 ==
LOC: D.ER 02:26 → D.M2 04:59
PROVIDERS: Emergency Medicine; Family Medicine; Internal Medicine Interventional Cardiology; ADMIT Family Medicine; ATTEND Family Medicine
PROC: B2111ZZ Fluoroscopy of Multiple Coronary Arteries using Low Osmolar Contrast (ICD-10-PCS; 2020-09-01)
PROC: B2151ZZ Fluoroscopy of Left Heart using Low Osmolar Contrast (ICD-10-PCS; 2020-09-01)
PROC: 4A033BC Measurement of Arterial Pressure, Coronary, Percutaneous Approach (ICD-10-PCS; 2020-09-01)
PROC: 02703DZ Dilation of Coronary Artery, One Artery with Intraluminal Device, Percutaneous Approach (ICD-10-PCS; principal; 2020-09-01 09:00)
PROC: 4A023N7 Measurement of Cardiac Sampling and Pressure, Left Heart, Percutaneous Approach (ICD-10-PCS; 2020-09-01 09:00)
DX: I21.4 Non-ST elevation (NSTEMI) myocardial infarction (principal); D68.59 Other primary thrombophilia; I50.20 Unspecified systolic (congestive) heart failure; I48.91 Unspecified atrial fibrillation; I11.0 Hypertensive heart disease with heart failure; G89.29 Other chronic pain; M54.9 Dorsalgia, unspecified; K21.9 Gastro-esophageal reflux disease without esophagitis; I25.10 Atherosclerotic heart disease of native coronary artery without angina pectoris; E78.5 Hyperlipidemia, unspecified; F17.200 Nicotine dependence, unspecified, uncomplicated